=== PATIENT | male | born 1980 | race Caucasian/White ===

== ENCOUNTER 2016-05-15 11:28 | Inpatient (IN) ==
--- NOTE | 2016-05-14 21:32 | Discharge Summary ---
<Yoanna Helton - Last Filed: 05/14/16 21:29> - Discharge Diagnosis (1) Aseptic loosening of prosthetic knee Priority: Primary Status: Acute (2) Tobacco abuse Priority: Secondary Status: Chronic (3) Obesity Priority: Secondary Status: Chronic Qualifiers: Obesity type: unspecified obesity type Obesity severity: unspecified obesity severity Qualified Code(s): E66.9 - Obesity, unspecified (4) Chronic pain Priority: Secondary Status: Chronic Comments: Takes Percocet 10/325 daily. Qualifiers: Chronic pain type: chronic pain syndrome Qualified Code(s): G89.4 - Chronic pain syndrome - Discharge Medications Home Medications: Aspirin Enteric Coated [Aspirin EC] 325 mg PO DAILY #21 tablet.dr 05/14/16 [Rx] Albuterol Sulfate [Proair Hfa] 2 puff IH Q6H PRN 05/15/16 [History] Gabapentin [Neurontin] 900 mg PO TID 05/15/16 [History] Ibuprofen [Motrin] 800 mg PO Q8HR PRN 05/15/16 [History] Oxycodone HCl/Acetaminophen [Percocet 10-325 mg Tablet] 1 tab PO TID PRN [History] Allergies/Adverse Reactions: Allergies No Known Allergies Allergy (Verified 05/15/16 12:49) Primary care physician: Kerry Mac CNP - Patient Status Disposition: Home, Self-Care Condition: Good - Discharge Instructions Follow Up With: Kerry Mac CNP [Primary Care Provider] - - Hospital Course Hospital course: Mr. Kumar is a 36 year old male - Time Spent with Patient Total time spent providing and/or coordinating discharge services: <Tulio Healy - Last Filed: 05/16/16 06:22> Date of Encounter: 05/16/16 Time of Encounter: 06:22 - Discharge Diagnosis (1) Aseptic loosening of prosthetic knee Priority: Primary Status: Acute Qualifiers: Encounter type: subsequent encounter Qualified Code(s): T84.038D - Mechanical loosening of other internal prosthetic joint, subsequent encounter; Z96.659 - Presence of unspecified artificial knee joint (2) Tobacco abuse Priority: Secondary Status: Chronic (3) Obesity Priority: Secondary Status: Chronic Qualifiers: Obesity type: unspecified obesity type Obesity severity: unspecified obesity severity Qualified Code(s): E66.9 - Obesity, unspecified (4) Chronic pain Priority: Secondary Status: Chronic Qualifiers: Chronic pain type: chronic pain syndrome Qualified Code(s): G89.4 - Chronic pain syndrome Primary care physician: Kerry Mac CNP - Patient Status Functional capacity at discharge: uses cane/walker Overall status at discharge: patient is progressing back to baseline - Hospital Course Hospital course: Mr. Kumar is a 36 year old male The patient had an uneventful postoperative course. They received antibiotics and physical therapy and were discharged in stable condition. There will follow -up in the office in 2 weeks. Aspirin DVT prophylaxis no knee motion 6 weeks - Time Spent with Patient Total time spent providing and/or coordinating discharge services:
[2016-05-15] MEDS ORDERED: Albuterol 2.5 MG/3 ML NEBULIZER IH ONE (11:59)
[2016-05-15] MEDS ORDERED: Lidocaine -MPF 1% 2 ML VIAL ID ONE (11:59)
[2016-05-15] MEDS ORDERED: CeFAZolin Pre 2,000 MG/100 ML 2,000 MG/100 ML BAG IVPB ONE (11:59)
--- NOTE | 2016-05-15 11:59 | History & Physical Report ---
Date of Encounter: 05/15/16 Time of Encounter: 11:59 24 Hour HP Update - Instructions Instructions: If the History and Physical is less than 30 days old and was completed prior to A.M. admission and or procedure and has NOT been updated on calendar day of procedure please complete this update prior to performing procedure. - Update Patient reports changes in Medical Condition: No Changes in assessment/condition: No Changes in Medication: No Preop tests/diagnostics Reviewed: Yes Surgery Remains Indicated: Yes Consent for Planned Operative Procedure(s) Verified: Yes - Pre-Operative Checklist Preoperative Checklist Indicated: No Prophylactic Antibiotic Ordered: Yes Is VTE Prophylaxis Indicated?: Yes
[2016-05-15] MEDS ORDERED: Ringers Solution, Lactated 1,000 ML IVC SCH ×2 (12:00→20:10)
[2016-05-15] MEDS ORDERED: Famotidine 20 MG/2 ML VIAL IVP ONE (12:53)
--- NOTE | 2016-05-15 12:57 | Anesthesia Evaluation PreOp ---
Date of Encounter: 05/15/16 Time of Encounter: 13:00 - Past History Planned Operation: Left TKA Revision Cardiac History: Denies any Significant Hx Pulmonary History: Smoker, Asthma CLINICAL APPLICATIONS MANAGER History: Denies Any Significant HX Other Medical History: Denies Any Significant HX, Other (Obese) Alcohol Use: none Drug use: none Medications and Allergies Aspirin Enteric Coated [Aspirin EC] 325 mg PO DAILY #21 tablet. 05/14/16 [Rx] OxyCODONE Immed Rel [Roxicodone 5 MG] 5 - 10 mg PO DAILY #20 tablet 05/14/16 [Rx ] Albuterol Sulfate [Proair Hfa] 2 puff IH Q6H PRN 05/15/16 [History] Gabapentin [Neurontin] 900 mg PO TID 05/15/16 [History] Ibuprofen [Motrin] 800 mg PO Q8HR PRN 05/15/16 [History] Oxycodone HCl/Acetaminophen [Percocet 10-325 mg Tablet] 1 tab PO TID PRN [History] Allergies No Known Allergies Allergy (Verified 05/15/16 12:49) - Meds/Allergy Pre-op Review Medications Reviewed: Yes Allergies Reviewed: Yes Beta Blockers on Current Med List: No Anesthesia Results - Labs Laboratory Tests 05/04/16 05/04/16 15:23 15:23 Hgb 16.0 Hct 48.7 Plt Count 427 H Sodium 139 Potassium 4.5 BUN 5 L Creatinine 0.80 - Imaging EKG: report reviewed Anesthesia Exam O2 Sat Height 1.82 m Height 1.82 m Weight 119.295 kg Weight 119.295 kg O2 Sat by Pulse Oximetry 97 Vital Signs Temp Pulse Resp BP Pulse Ox 98.1 F 92 18 139/93 97 05/15/16 11:43 05/15/16 11:43 05/15/16 11:43 05/15/16 11:43 05/15/16 11:43 Height: 6'0 Weight: 257 lbs NPO (# of Hours): MN Pain Scale: 0 - HEENT Pupil (Motor): Pupils equal, EOMI Mallampati: III Teeth: Normal Oral Opening: Less than or equal to 3 - CLINICAL APPLICATIONS MANAGER LOC: Oriented CLINICAL APPLICATIONS MANAGER Motor: Normal RUE, Normal LUE, Normal RLE, Normal LLE, Normal Face CLINICAL APPLICATIONS MANAGER Sensory: Normal: RUE, RLE, LLE, Face, Deficit: LUE (lateral knee paresthesia ) - Cardiac Rhythm: Regular Murmur: None JVD: No Carotid Bruit: No - Pulmonary Breath Sounds: bilateral Clear Respiratory Effort: Symmetrical Anesthesia Assess/Plan ASA Score: 2 Modified Brianna Scale for Level of Consciousness: Cooperative, oriented, and tranquil Anesthetic Plan: General, Regional Monitoring Plan: Standard Monitors Recovery Plan: PACU (Discussed GA and RA, agrees to proceed)
[2016-05-15] MEDS ORDERED: *HR* Midazolam HCl 2 MG/2 ML VIAL ONE (14:20)
[2016-05-15] MEDS ORDERED: Dexamethasone 4 MG/ML VIAL ONE (14:20)
[2016-05-15] MEDS ORDERED: Lidocaine -MPF 2% 2 ML VIAL ONE (14:20)
[2016-05-15] MEDS ORDERED: Ondansetron 4 MG/2 ML VIAL ONE (14:20)
[2016-05-15] MEDS ORDERED: *HR* FentaNYL (PF) 100 MCG/2 ML VIAL ONE ×2 (14:20→15:55)
[2016-05-15] MEDS ORDERED: *HR* Propofol 200 MG/20 ML VIAL IVP ONE (14:20)
[2016-05-15] MEDS ORDERED: *HR* Labetalol 100 MG/20 ML MDV IVP PRN (14:33)
[2016-05-15] MEDS ORDERED: *HR* Meperidine 25 MG/ML SYRINGE IVP PRN (14:33)
[2016-05-15] MEDS ORDERED: Dexamethasone 4 MG/ML VIAL IVP ONE (14:33)
[2016-05-15] MEDS ORDERED: Ondansetron 4 MG/2 ML VIAL IVP ONE (14:33)
[2016-05-15] MEDS ORDERED: Tetracaine/PF 20 MG/2 ML AMPUL SPINA ONE (14:42)
[2016-05-15] MEDS ORDERED: Bupivacaine/Clonidine Syringe 1 EACH SYRINGE ONE (14:43)
--- NOTE | 2016-05-15 15:22 | Anesthesia Procedures ---
Date of Encounter: 05/15/16 Time of Encounter: 12:54 Procedures: Anesthesia - Nerve Block Procedure Date: 05/15/16 Time: 15:10 Pre-op Diagnosis: Left Knee Instability Surgical Procedure: Left TKA Revision Checklist: Correct Patient Identifier Correct side: Left Blood Thinner: No Monitor Applied: EKG, BP, Pulse Oximetry Supplemental Oxygen via Nasal Cannula (L/min): 2 Sedation: Versed (mg): 2 Sedation: Fentanyl (mcg): 100 Indication: Post Op Analgesia Pre-op Neuro Deficits: Yes Block Type: Femoral, Other (IPACK) Catheter placed: No Depth at skin (cm): 3 Sterile Technique: Yes Ultrasound used: Yes Anatomy identified: Yes Visual spread of Local: Yes Neuro Stimulation: Yes Nerve Stimulator Range: >0.4 - 0.6 mA Blood on Needle Aspiration: No Smooth Injection of Local: Yes Pain with Injection of Local: No Prep: Chlorhexadine Needle: 22 x 50 mm Stimuplex Local: 0.25% Bupivicaine w/Clonidine 20 mcg/cc, Tetracaine (20), Ropivacaine ( 0.5%) Volume (cc): 30 Number of Attempts: 1 Complications: None/effective block Vitals: Vital Signs/O2 Sat/Glucose, Most Current Temp Pulse Resp BP Pulse Ox 05/15/16 15:05 78 16 119/78 98 05/15/16 14:43 60 16 144/84 100 05/15/16 11:43 98.1 F 92 18 139/93 97
[2016-05-15] MEDS ORDERED: Ketorolac 30 MG/ML VIAL ONE (15:48)
[2016-05-15] MEDS ORDERED: *HR* HYDROmorphone 2 MG/ML SYRINGE ONE (15:50)
--- NOTE | 2016-05-15 16:27 | Orthopedic Operative Note ---
Date of procedure: 05/15/16 Pre-op diagnosis: Unstable left total knee Post-op diagnosis: same Procedure: Procedure: Left revision total knee Estimated blood loss: 40 mL Hardware: Biomet 360 65 left femur 18 x 120 stem, 75stem tibia, 44o646 stem. 24 constrained Estrellita, Exam Under anesthesia: Full extension and flexion tsignificant varus valgus instability Procedural Notes: Unstable total knee. Operative procedure: The patient was brought to the operating room and placed on the operating room table. After general anesthesia was administered the operative knee was examined. Findings were noted in the exam under anesthesia. The operative extremity was prepped and draped in sterile surgical fashion. The patient received IV antibiotics prior to skin incision. A standard midline incision was made centered over the patella through the old incision. The incision was made through the skin and subcutaneous tissue. A medial parapatellar tendon approach was performed. Care was taken to preserve tissue along the medial aspect of the patella. And to protect the patella tendon. The deep MCL was released off the medial tibia. The infra patella fat pad was excised. Fluid was encountered this was normal joint fluid, Cultures were obtained and gram . The knee was brought into flexion the poly-was removed. The interface between the patient's femoral component and distal femur were disrupted with a osteotome and oscillating saw. Femoral component was removed removed without significant bone loss. Attention was then turned to the tibial component. The same technique was used to remove the tibial component by disrupting the interface between the patient's tibial component and the patients proximal tibia. The tibial component was loose, was removed without significant bone loss. The tibia was sized to a 65 it was reamed up to a 18 x 80. Trial had good fit and fixation. The femur was sized to a 75, was reamed up to a 16 x 120. The finishing guide was seated and the box cut was made. The trial had good fit and fixation. Both trial components were seated and the 24 constrained Estrellita was seated and secured. The knee had full flexion and full extension with no instability. Patella had excellent patella tracking. The trial components were removed. The knee sat for 2 minutes with a Betadine saline solution. It was irrigated out with 2 L of pulse irrigation. The components were assembled on the back table, the tibia cemented first followed by the femur. The 24 constrained liner was seated and secure. The knee was brought to full extension while the cement hardened. After the cement hardened the knee was irrigated out again. The extensor mechanism was closed with a running #2 Fiberwire suture and a running #2 PDS suture. The deep tissue was irrigated and closed deep with #1 PDS suture superficially with 0 PDS suture. The skin was closed with skin gopi. The patient was placed in a sterile dressing and postoperative brace. They were extubated and transferred to recovery room in stable condition. Anesthesia: GETA Surgeon: Tulio Healy Hoop Bender Tank: Yoanna Helton Condition: stable Disposition: PACU
[2016-05-15] MEDS: *HR* HYDROmorphone (PF) 1 MG/ML SYRINGE IVP PRN ×10 (17:05→23:15)
[2016-05-15 17:36] LABS: Hematocrit 47.6 % (37.5-50.1); Hemoglobin 15.5 g/dL (12.9-16.9)
[2016-05-15] MEDS ORDERED: *HR* Enoxaparin 30 MG/0.3 ML SYRINGE SQ SCH (18:00)
[2016-05-15] MEDS ORDERED: Ketamine *HR* 500 MG/10 ML MDV ONE (18:08)
[2016-05-15] MEDS: *HR* Ketamine 500 MG/5 ML MDV IVP PRN ×2 (18:10→18:17)
[2016-05-15] MEDS ORDERED: *HR* Midazolam HCl 5 MG/5 ML VIAL IVP ONE ×2 (18:44→18:53)
[2016-05-15] MEDS ORDERED: Ketamine *HR* 500 MG/10 ML MDV IVP PRN (18:47)
--- NOTE | 2016-05-15 19:10 | Anesthesia Procedures ---
Date of Encounter: 05/15/16 Time of Encounter: 19:00 Procedures: Anesthesia - Nerve Block Procedure Date: 05/15/16 Time: 19:00 Allergies/Adv Reactions: nkda Pre-op Diagnosis: L knee pain Surgical Procedure: L knee revision x 3 Checklist: Correct Patient Identifier, Correct procedure, History checked Correct side: Left Blood Thinner: Yes Monitor Applied: EKG, BP, Pulse Oximetry Supplemental Oxygen via Nasal Cannula (L/min): 2 Sedation: Versed (mg): 3 Indication: Post Op Analgesia Pre-op Neuro Deficits: No Block Type: Femoral Catheter placed: No Sterile Technique: Yes Ultrasound used: Yes Anatomy identified: Yes Visual spread of Local: Yes Smooth Injection of Local: Yes Pain with Injection of Local: No Prep: Chlorhexadine Local: Other (0.5% bupivacaine) Volume (cc): 30 Number of Attempts: 1 Complications: None/effective block
--- NOTE | 2016-05-15 19:42 | Anesthesia Evaluation Post Op ---
Date of Encounter: 05/15/16 Time of Encounter: 19:41 - Vital Signs Vital Signs: Vital Signs/O2 Sat, Most Current Temp Pulse Resp BP Pulse Ox 97.6 F 70 12 122/79 97 05/15/16 19:30 05/15/16 19:30 05/15/16 19:30 05/15/16 19:30 05/15/16 19:30 - Lungs Lungs: Clear Ascult./Percussion - Airway Airway: Non-obstructed - Cardiovascular Regular Rate - Mental Status Mental Status: Alert & Oriented, Answers Appropriately - Pain Pain Scale: 5 Pain Scale used: Numeric (1 - 10) - Nausea Vomiting Nausea Vomiting: Not Present - Hydration Hydration: NPO, Has not voided - Discharge PostOp Status: Transfer Patient to floor
[2016-05-15] MEDS ORDERED: Acetaminophen 325 MG TABLET PO PRN (20:10)
[2016-05-15] MEDS ORDERED: *HR* OxyCODONE Immed Rel 5 MG TABLET PO PRN (20:10)
[2016-05-15] MEDS ORDERED: Ibuprofen 800 MG TABLET PO PRN (20:10)
[2016-05-15] MEDS ORDERED: Sennosides 8.6 MG TABLET PO PRN (20:10)
[2016-05-15] MEDS ORDERED: Temazepam 15 MG CAPSULE PO PRN (20:10)
[2016-05-15] MEDS ORDERED: Ondansetron 4 MG/2 ML VIAL IVP PRN (20:10)
[2016-05-15] MEDS ORDERED: MOM Conc 10 ML UD.LIQ PO PRN (20:10)
[2016-05-15] MEDS ORDERED: Naloxone 0.4 MG/ML INJ IVP PRN (20:10)
[2016-05-15] MEDS: Gabapentin 300 MG CAPSULE PO SCH ×2 (20:38→21:09)
[2016-05-15] MEDS: *HR* OxyCODONE Immed Rel 5 MG TABLET PO PRN (22:17)
[2016-05-15] MEDS: Nicotine 21 MG PATCH.TD24 TD SCH (23:14)
[2016-05-15] MEDS: ceFAZolin 2,000 MG in D5% in Water 100 ML IVPB SCH (23:14)
[2016-05-16] MEDS: *HR* HYDROmorphone (PF) 1 MG/ML SYRINGE IVP PRN ×2 (01:37→07:34)
[2016-05-16] MEDS: ceFAZolin 2,000 MG in D5% in Water 100 ML IVPB SCH (05:34)
[2016-05-16] MEDS: *HR* OxyCODONE Immed Rel 5 MG TABLET PO PRN ×3 (05:34→14:22)
[2016-05-16] MEDS ORDERED: *HR* Enoxaparin 30 MG/0.3 ML SYRINGE SQ SCH (06:00)
[2016-05-16 06:13] LABS: Hematocrit 39.7 % (37.5-50.1)
[2016-05-16] MEDS ORDERED: Ketorolac 30 MG/ML VIAL IVP ONE (06:16)
[2016-05-16] MEDS ORDERED: Acetaminophen IV 1,000 MG/100 ML INFUS..BTL IVPB ONE (06:17)
[2016-05-16 06:18] LABS: Hemoglobin 12.7 g/dL (12.9-16.9)
--- NOTE | 2016-05-16 06:23 | Orthopedics Progress Note ---
Date of Encounter: 05/16/16 Time of Encounter: 06:23 - Assessment and Plan (1) Aseptic loosening of prosthetic knee Current Visit: Yes Status: Acute Qualifiers: Encounter type: subsequent encounter Qualified Code(s): T84.038D - Mechanical loosening of other internal prosthetic joint, subsequent encounter; Z96.659 - Presence of unspecified artificial knee joint (2) Tobacco abuse Current Visit: Yes Status: Chronic (3) Obesity Current Visit: Yes Status: Chronic Qualifiers: Obesity type: unspecified obesity type Obesity severity: unspecified obesity severity Qualified Code(s): E66.9 - Obesity, unspecified (4) Chronic pain Current Visit: Yes Status: Chronic Qualifiers: Chronic pain type: chronic pain syndrome Qualified Code(s): G89.4 - Chronic pain syndrome Subjective Interval history: Patient was seen this morning doing well without complaints. Afebrile vital signs stable. Operative extremity: Neurovascularly intact Dressing clean dry and intact Calves nontender Assessment and plan: Continue with postoperative care Hematocrit 39 discharged today Objective Vital signs: Vital Signs Temp Pulse Resp BP Pulse Ox 05/16/16 04:00 98.4 F 85 18 137/83 97 05/16/16 00:00 98.2 F 90 19 135/85 97 05/15/16 22:15 98.3 F 99 18 136/86 97 05/15/16 21:10 98.9 F 97 18 127/79 97 05/15/16 20:44 97.8 F 102 18 134/87 96 05/15/16 20:05 98.1 F 97 18 146/81 97 05/15/16 19:40 97.6 F 90 18 125/83 98 05/15/16 19:30 97.6 F 70 12 122/79 97 05/15/16 19:20 73 14 120/82 98 05/15/16 19:10 74 12 123/79 99 05/15/16 19:00 97.5 F L 78 12 125/83 99 05/15/16 18:50 82 18 125/84 100 05/15/16 18:40 101 20 128/91 96 05/15/16 18:30 97.5 F L 88 14 149/97 95 05/15/16 18:20 78 16 139/96 95 05/15/16 18:10 79 16 120/105 100 05/15/16 18:00 97.4 F L 72 16 108/86 96 05/15/16 17:50 77 16 95/69 98 05/15/16 17:40 81 16 90/84 100 05/15/16 17:30 97.6 F 64 16 101/73 100 05/15/16 17:20 85 16 167/121 99 05/15/16 17:10 95 16 101/84 98 05/15/16 17:00 97.1 F L 88 16 86/64 96 05/15/16 15:05 78 16 119/78 98 05/15/16 14:43 60 16 144/84 100 05/15/16 11:43 98.1 F 92 18 139/93 97 Intake and Output 05/15/16 05/15/16 05/16/16 15:59 23:59 07:59 Intake Total 100 / 100 100 / 100 Output Total 300 / 300 350 / 350 Balance 100 / 100 -200 / -200 -350 / -350 Intake: IV Fluids 100 / 100 100 / 100 Ancef 2,000 MG In 100 / 100 Dextrose 5% 100 ML @ 200 mls/hr IVPB Q8H [facility] Rx#: [id number] Ancef Premix 2,000 MG/100 100 / 100 ML 2,000 mg In 100 ml @ 200 mls/hr IVPB PREOP ONE Rx#:[id number] Output: Urine 350 / 350 Estimated Blood Loss 300 / 300 Other: # Voids 1 Weight 119.295 kg - Labs CBC & BMP: 05/16/16 05:19 Labs: Abnormal lab results Hgb 12.7 g/dL (12.9-16.9) L D 05/16/16 05:19 - VTE Documentation of Mechanical Device: Venous foot pump, device Consult Discharge Plan - Plan Referrals: Kerry Mac, [employer] [employer] [Primary Care Provider] -
[2016-05-16 06:28] LABS: BUN/Creatinine Ratio 13 (6-26); Blood Urea Nitrogen 11 mg/dL (8-26); Calcium 8.9 mg/dL (8.6-10.8); Carbon Dioxide 24 mEq/L (19-29); Chloride 106 mEq/L (98-109); Glucose 176 mg/dL (70-99); Osmolality,Calculated 292 (280-300); Potassium 4.8 mEq/L (3.5-4.5); Sodium 139 mEq/L (136-145); eGFR For African Americans > 60 (> 60); eGFR For Non-African Americans > 60 (> 60)
[2016-05-16] MEDS: Gabapentin 300 MG CAPSULE PO SCH (07:33)
[2016-05-16] MEDS: Nicotine 21 MG PATCH.TD24 TD SCH (07:33)
[2016-05-16 14:31] VITALS: BP 146/81
== END 2016-05-16 16:12 | disposition home or self-care (01) | DRG 302 ==
LOC: SAMDAY 11:28 → 3NENU 20:07
PROVIDERS: ADMIT Orthopaedic Surgery; ATTEND Orthopaedic Surgery